=== PATIENT | male | born 1995 | race Caucasian/White ===

== ENCOUNTER 2022-02-13 21:08 | Emergency (ER) | payer MEDICAID, OTHER ==
[~2022-02-13] VITALS: Ht 177.8 cm; Wt 82.0 kg
[2022-02-13 21:39] VITALS: BP 140/80
[2022-02-13] MEDS ORDERED: LORAZEPAM 1MG TABLET PO ONE (21:45)
== END 2022-02-14 01:04 | disposition home or self-care (01) ==
LOC: ER 21:08
DX: F41.9 Anxiety disorder, unspecified (principal); F10.129 Alcohol abuse with intoxication, unspecified; Y90.9 Presence of alcohol in blood, level not specified; R03.0 Elevated blood-pressure reading, without diagnosis of hypertension
CPT/HCPCS: 99283

== ENCOUNTER 2022-08-04 03:14 | Emergency (ER) | payer OTHER ==
[~2022-08-04] VITALS: Ht 180.3 cm; Wt 78.0 kg
[2022-08-04 03:53] VITALS: BP 114/71
[2022-08-04] MEDS ORDERED: ONDANSETRON HCL 4MG/2ML INJ IV STA (09:14)
[2022-08-04] MEDS ORDERED: MORPHINE SULFATE 4 MG/ML CPJ (NOT FOR IM USE) IV STA (09:14)
[2022-08-04] MEDS ORDERED: SODIUM CHLORIDE 0.9% 1,000 ML IV ONE (09:15)
[2022-08-04] MEDS ORDERED: IBUPROFEN 800MG TABLET PO ONE (09:30)
[2022-08-04] MEDS ORDERED: ONDANSETRON 4MG ODT PO ONE (09:30)
[2022-08-04 09:53] LABS: HEMATOCRIT. 45.9 % (42.0-52.0); HEMOGLOBIN. 15.7 g/dL (14.0-18.0); MEAN CORPUSCULAR VOLUME 90.7 fL (80.0-94.0); MEAN PLATELET VOLUME 10.2 fl (7.4-10.4); PLATELET 181 x1000/uL (130-400); RED BLOOD CELL COUNT 5.05 mill/uL (4.7-6.1); RED CELL DISTRIBUTION WIDTH 13.1 % (11.6-14.6)
[2022-08-04 09:58] LABS: CHLORIDE 106 mEq/L (98-107)
[2022-08-04 10:04] LABS: PROTHROMBIN TIME 10.8 sec (9.6-11.0)
[2022-08-04 10:42] LABS: PLATELET ESTIMATE NORMAL
[2022-08-04 10:58] LABS: CLARITY URINE CLEAR (CLEAR); COLOR URINE YELLOW (YELLOW); KETONES URINE TRACE (NEGATIVE); LEUKOCYTE ESTERASE URINE NEGATIVE (NEGATIVE); NITRITE URINE NEGATIVE (NEGATIVE); OCCULT BLOOD URINE NEGATIVE (NEGATIVE); PROTEIN URINE TRACE (NEGATIVE)
[2022-08-04] MEDS ORDERED: AMOX1TAB16 MT (11:07)
== END 2022-08-04 11:27 | disposition home or self-care (01) ==
LOC: ER 03:14
DX: K57.92 Diverticulitis of intestine, part unspecified, without perforation or abscess without bleeding (principal); F41.9 Anxiety disorder, unspecified
CPT/HCPCS: 36415; 74176; 80053; 81003; 83690; 85025; 85610; 99284; Q0162; J7030